=== PATIENT | female | born 1970 ===

== ENCOUNTER 2021-05-06 08:32 | Day surgery (SDC) | payer OTHER ==
[2021-05-06 08:25] LABS: Urine Appearance CLEAR (Clear); Urine Bilirubin NEGATIVE (Negative); Urine Blood NEGATIVE (Negative); Urine Color YELLOW (Yellow); Urine Glucose NEGATIVE (Negative); Urine Protein NEGATIVE (Negative); Urine Specific Gravity 1.025 (1.005-1.030); Urine pH 6.5 (5.0-7.0)
[2021-05-06 08:27] LABS: Absolute Lymphocytes (CBC) 1.6 K/uL (0.7-4.9); Basophils % 0.4 % (0-1.3); Hematocrit 39.8 % (36.0-45.0); Lymphocytes % 27.6 % (15.3-44.8); MPV 9.8 fL (7.6-11.3)
[2021-05-06 08:27] LABS: Urine Microscopic Reflex NO UMIC
[2021-05-06 08:33] LABS: Specific Gravity 1.025 (1.005-1.030)
--- NOTE | 2021-05-06 08:41 | RAD REPORT ---
EXAM DESCRIPTION: RAD - Chest Pa And Lat (2 Views) - 05/06/2021 8:32 am CLINICAL HISTORY: Pre Op COMPARISON: No comparisons FINDINGS: Lines: None. Lungs: No evidence of edema or pneumonia. Pleural: No significant pleural effusions or pneumothorax. Cardiac: The heart size is within normal limits. Bones: No acute fractures. Other: IMPRESSION: No acute cardiopulmonary disease.
[2021-05-06] MEDS ORDERED: Ringers Lactate 1,000 ML IV ONE ×4 (09:13→15:40)
[2021-05-06] MEDS ORDERED: NS 0.9% VIAL 20 ML ONE (09:14)
[2021-05-06] MEDS ORDERED: Mastisol Adhesive Liq ONE (09:14)
[2021-05-06] MEDS ORDERED: LIDOCAINE 1% W/EPI 1:100,000 MDV 20 ML VIAL ONE (09:14)
[2021-05-06] MEDS ORDERED: GENTAMICIN SULF 80 MG/2ML INJ ONE (09:14)
[2021-05-06] MEDS ORDERED: CEFAZOLIN SODIUM 1 GM/VIAL ONE (09:15)
[2021-05-06 09:26] LABS: White Blood Cell Scan OK (OK)
[2021-05-06] MEDS ORDERED: MIDAZOLAM HCL 2 MG/2 ML INJ ONE (09:26)
[2021-05-06] MEDS ORDERED: propofoL 200 MG/20 ML VIAL IV ONE (09:26)
[2021-05-06] MEDS ORDERED: NS 0.9% VIAL 10 ML ONE ×2 (09:26→12:49)
[2021-05-06] MEDS ORDERED: FENTANYL CITR 250 MCG/5 ML ONE (09:26)
[2021-05-06] MEDS ORDERED: dexAMETHasone 10 MG/ML VIAL ONE (09:26)
[2021-05-06] MEDS ORDERED: ONDANSETRON 4 MG/2 ML VIAL ONE ×2 (09:26→14:57)
[2021-05-06] MEDS ORDERED: LIDOCAINE 1% MPF 5 ML VIAL ONE (09:26)
[2021-05-06 09:27] LABS: Anisocytosis 3+; Blood Morphology Comment NOTED (NOT SEEN); Platelet Estimate ADEQ
[2021-05-06] MEDS ORDERED: VECURONIUM 10 MG/VIAL IV ONE ×2 (09:27→12:28)
[2021-05-06] MEDS ORDERED: CLINDAMYCIN PHOSPHATE 300 MG in NA CHLORIDE 0.9% 50 ML IV ONE (09:30)
[2021-05-06] MEDS ORDERED: SCOPOLAMINE HYDROBROMIDE PATCH TD ONE (09:52)
--- NOTE | 2021-05-06 10:40 | EKG ---
Test Date: 2021-05-06 Test Time: 07:09:09 Direct Care Counselor: ARNEL MEASUREMENT RESULTS: Intervals: Rate: 71 TX: 148 QRSD: 82 QT: 386 QTc: 419 Huntly: P: 36 TX: 148 QRS: 17 T: 58 INTERPRETIVE STATEMENTS: Normal sinus rhythm Low voltage QRS Cannot rule out Anterior infarct, age undetermined Abnormal ECG No previous ECG available for comparison Electronically Signed On 05-06-21 10:39:36 CDT by Boyd Holland
[2021-05-06] MEDS: Ringers Lactate 1,000 ML IV ONE ×3 (11:34→11:40)
[2021-05-06] MEDS ORDERED: GLYCOPYRROLATE 0.2 MG/ML SYR ONE ×2 (12:27→14:57)
[2021-05-06] MEDS ORDERED: KETOROLAC 30 MG/ML INJ ONE ×2 (14:57→14:59)
[2021-05-06] MEDS ORDERED: NEOSTIGMINE 1 MG/ML -5 ML ONE (14:57)
[2021-05-06] MEDS ORDERED: MORPHINE 10 MG/ML VIAL ONE (14:58)
[2021-05-06 15:42] VITALS: O2SAT 100
[2021-05-06 17:29] VITALS: BP 104/51; TEMP 99.6
[2021-05-06] MEDS ORDERED: CODEINE 30MG/APAP 300MG TAB ONE (18:13)
--- NOTE | 2021-05-06 21:03 | OP ---
Surgeon: Tahir Awad MD Preoperative Diagnosis: Breast enlargement and descent. Postoperative Diagnosis: Breast enlargement and descent. Procedure Performed: Breast reduction. Anesthesia: General. Procedure In Detail: After satisfactory induction of general anesthesia, chest was prepped with Dura Prep, dry sterile drapes were applied in the usual manner. 4-5 template was used to outline the righ t and left areolas and transverse curvilinear incision was made. The intervening skin was de-epithel ialized with dermabrader or tenotomy scissors and then the right side was approached first. A transv erse incision was made full-thickness with electrocautery. Flap was thinned to approximately 2 cm, e levated toward sternum, clavicle, anterior axillary line. Then the inferior incision was made. Deep ithelialized tissue was formed in the cone after excess lateral tissue was resected. Conization was performed with 2-0 PDS suture. Straps were elevated at 12 o'clock, 1:30 and 3 o'clock position. Str aps were then woven in and out of the pectoralis major muscle, back to the base of the cone, back to the pectoralis muscle, back to base of cone, tied to itself with 2-0 PDS suture. Skin for 12 o'clock , 1:30 strap, 3 o'clock strap was sewn over the sternum at 3 o'clock position with 2-0 Ethibond. Wou nd was carefully stapled shut. Left side was done in identical manner. We then returned to the righ t side. A 10 ELHAM was brought out of the axilla. Dog ears were resected and then the wound was closed after irrigating with antibiotic solution. Closed with 3-0 Vicryl subcutaneous, 3-0 PDS running sub cuticular tied for medial to lateral, lateral to medial, tied to the vertical meridian. Left side wa s done in identical manner. The patient was sat up. Site for new nipple-areolar complex was marked out. Was tissue excised. Nipple-areolar complex was sewn with interrupted 4-0 PDS followed by 4-0 P DS running subcuticular. Dressings consisted of tincture of benzoin, Steri-Strips, followed by Esmarch, fluffs, and Louis wrap. Amount of tissue removed from the right breast was 407, left was 280. GH/MODL Voice ID: [id number] Report ID: [id number]
== END 2021-05-06 17:18 | disposition home or self-care (01) ==
LOC: PRE 08:32 → OR 17:18
PROVIDERS: ATTEND Specialist
PROC: 0HSV0ZZ Reposition Bilateral Breast, Open Approach (ICD-10-PCS; principal; 2021-05-06 09:00)
DX: N64.81 Ptosis of breast (principal)
CPT/HCPCS: 93005; 85025; 36415; 81025; 88305; 81003; 71046; 19316; J2704; J1580; J2250; J3010; J1100; S0077; J2710; J7120 ×5; J2405 ×2; J0690